=== PATIENT | female | born 1975 | race Caucasian/White ===

== ENCOUNTER 2025-03-05 15:05 | Inpatient (IN) | payer MEDICARE, OTHER ==
[~2025-03-05] VITALS: Ht 162.6 cm; Wt 52.2 kg
[2025-03-05] MEDS ORDERED: OLANZAPINE 10 MG VIAL IM ONE (16:08)
[2025-03-05] MEDS: OLANZAPINE 10 MG VIAL IM ONE (16:13)
[2025-03-05 17:06] LABS: APPEARANCE,URINE CLEAR (CLEAR); BLOOD, URINE Negative Ery/uL (NEGATIVE); LEUKOCYTE ESTERASE ,URINE Negative (NEGATIVE); UGLUCOSE Negative (NEGATIVE)
[2025-03-05 17:09] LABS: NITRITE, URINE NEGATIVE (NEGATIVE)
[2025-03-05 17:10] LABS: ADD URINE CULTURE NO; SQUAMOUS EPITHELIAL CELL,UR Rare /HPF (None Seen)
[2025-03-05 17:18] LABS: AMPHETAMINE, URINE NEGATIVE (NEGATIVE); BARBITURATE, URINE NEGATIVE (NEGATIVE); BENZODIAZEPINE, URINE NEGATIVE (NEGATIVE); CANNABINOID, URINE NEGATIVE (NEGATIVE); COCCAINE, URINE NEGATIVE (NEGATIVE); OPIATE, URINE NEGATIVE (NEGATIVE)
[2025-03-05 17:53] LABS: PLATELET COUNT (AUTO) 230 K/uL (150-450); RED BLOOD CELL COUNT(AUTO) 4.12 MIL/uL (4.0-5.2); RED CELL DISTRIBUTION WIDTH 14.7 % (11.5-15.0); WHITE BLOOD COUNT (AUTO) 5.3 K/uL (4.3-11.0)
[2025-03-05 18:00] LABS: CALCIUM, SERUM 8.8 mg/dL (8.5-10.1); CREATININE 0.7 mg/dL (0.6-1.3); SODIUM SERUM 143 mmol/L (136-145); UREA NITROGEN, BLOOD 29 mg/dL (7-18)
[2025-03-05 18:05] LABS: ALCOHOL, BLOOD < 3 mg/dL (0-10); ASPARTATE AMINOTRANSFERASE 18 U/L (15-37); TOTAL PROTEIN, SERUM 7.2 g/dL (6.4-8.2)
[2025-03-05] MEDS ORDERED: MAGN400O6 PO (19:35)
[2025-03-05] MEDS ORDERED: ACET325T53 PO (19:35)
[2025-03-05] MEDS ORDERED: SENN-261 PO (19:35)
[2025-03-05] MEDS ORDERED: CHLO100T24 PO (19:35)
[2025-03-05] MEDS ORDERED: MAGN400T30 PO (19:35)
[2025-03-05] MEDS ORDERED: LEVE500T20 PO (19:35)
[2025-03-05] MEDS ORDERED: BISA10SU11 RC (19:35)
[2025-03-05] MEDS ORDERED: LEVO100T9 PO (19:35)
[2025-03-05] MEDS ORDERED: NA P133E RC (19:35)
[2025-03-05] MEDS ORDERED: VALP250C3 PO (19:35)
[2025-03-05] MEDS ORDERED: QUET50TA PO (19:35)
[2025-03-05] MEDS ORDERED: BISACODYL SUPP (10 MG) 10 MG/SUPP.RECT SUPP.RECT RC PRN (20:30)
[2025-03-05 20:45] VITALS: BP 107/79; TEMP 97.7; O2SAT 98
[2025-03-05] MEDS ORDERED: MAG HYDROX/AL HYDROX/SIMETH 30 ML UDC PO PRN (21:00)
[2025-03-05] MEDS ORDERED: MAGNESIUM HYDROXIDE 30 ML UDC PO PRN (21:00)
[2025-03-05] MEDS ORDERED: ACETAMINOPHEN 325 MG TABLET PO PRN (21:00)
[2025-03-05] MEDS: BLOOD SUGAR DIAGNOSTIC 1 EACH STRIP IN ONE (21:12)
[2025-03-05] MEDS: LEVETIRACETAM (250 MG) 250 MG TABLET PO SCH (21:20)
[2025-03-06] MEDS: LORAZEPAM 0.5 MG TABLET PO PRN ×2 (03:31→20:52)
[2025-03-06] MEDS: LORAZEPAM INJ 2 MG/ML VIAL IM ONE ×2 (06:51→22:36)
[2025-03-06] MEDS ORDERED: HALOPERIDOL LACTATE INJ 5 MG/ML VIAL IM ONE (07:00)
[2025-03-06] MEDS: LORAZEPAM INJ 2 MG/ML VIAL IM STA (07:22)
[2025-03-06] MEDS: HALOPERIDOL LACTATE INJ 5 MG/ML VIAL IM STA (07:22)
[2025-03-06 08:00] VITALS: BP 97/65; TEMP 97.9; O2SAT 97
[2025-03-06 08:24] LABS: ASPARTATE AMINOTRANSFERASE 17.0 U/L (15-37); CALCIUM, SERUM 8.8 mg/dL (8.5-10.1); CREATININE 0.6 mg/dL (0.6-1.3); SODIUM SERUM 143.0 mmol/L (136-145); TOTAL PROTEIN, SERUM 7.7 g/dL (6.4-8.2); UREA NITROGEN, BLOOD 26.0 mg/dL (7-18)
[2025-03-06 08:42] LABS: LDL 56 mg/dL (0-99)
[2025-03-06] MEDS: SENNOSIDES 8.6 MG TABLET PO SCH (09:00)
[2025-03-06] MEDS ORDERED: MAGNESIUM OXIDE 400 MG TABLET PO SCH (09:00)
[2025-03-06] MEDS: LEVOTHYROXINE SODIUM 100 MCG TABLET PO SCH (09:00)
[2025-03-06] MEDS: LORAZEPAM 1 MG TABLET PO STA (13:40)
[2025-03-06 16:00] VITALS: BP 115/72; TEMP 98.6; O2SAT 97
[2025-03-06] MEDS: ACETAMINOPHEN 325 MG TABLET PO PRN (20:31)
[2025-03-06 20:35] VITALS: BP 112/65; TEMP 98.4; O2SAT 95
[2025-03-06] MEDS: TEMAZEPAM 15 MG CAPSULE PO PRN (21:14)
[2025-03-06] MEDS: HALOPERIDOL LACTATE INJ 5 MG/ML VIAL IM ONE (22:36)
[2025-03-07 08:00] VITALS: BP 91/70; TEMP 97.8; O2SAT 94
[2025-03-07] MEDS: LORAZEPAM INJ 2 MG/ML VIAL IM STA (11:46)
[2025-03-07] MEDS: HALOPERIDOL LACTATE INJ 5 MG/ML VIAL IM STA (11:47)
[2025-03-07 16:00] VITALS: BP 140/128; TEMP 97.5; O2SAT 96
[2025-03-07 20:19] VITALS: BP 116/72; TEMP 98.1; O2SAT 97
[2025-03-08] MEDS ORDERED: Z GUARD REMEDY 4 OZ OINT TP PRN (06:00)
[2025-03-08 08:00] VITALS: BP 161/101; TEMP 98.1; O2SAT 96
[2025-03-08 16:00] VITALS: BP 138/83; TEMP 98; O2SAT 96
[2025-03-08 18:29] LABS: PLATELET COUNT (AUTO) 268 K/uL (150-450); RED BLOOD CELL COUNT(AUTO) 4.27 MIL/uL (4.0-5.2); RED CELL DISTRIBUTION WIDTH 14.9 % (11.5-15.0); WHITE BLOOD COUNT (AUTO) 8.1 K/uL (4.3-11.0)
[2025-03-08 18:39] LABS: CALCIUM, SERUM 8.8 mg/dL (8.5-10.1); CREATININE 0.5 mg/dL (0.6-1.3); PHOSPHORUS 3.3 mg/dL (2.5-4.9); SODIUM SERUM 144.0 mmol/L (136-145); UREA NITROGEN, BLOOD 22.0 mg/dL (7-18)
[2025-03-08 20:00] VITALS: BP 141/84; TEMP 100; O2SAT 96
[2025-03-08 22:06] VITALS: TEMP 97.7
[2025-03-09 04:00] VITALS: BP 139/93; TEMP 98.2; O2SAT 97
[2025-03-09] MEDS ORDERED: LORA-259 PO (08:28)
[2025-03-09] MEDS ORDERED: MAG30ORA PO (08:28)
[2025-03-09] MEDS ORDERED: RISP1TAB97 PO (08:28)
[2025-03-09] MEDS ORDERED: ALLA266C2 TP (08:28)
[2025-03-09] MEDS ORDERED: TEMA15CA PO (08:28)
[2025-03-11] MEDS ORDERED: LEVE250T2 PO (10:31)
== END 2025-03-09 05:43 | DRG 885 ==
LOC: ER 15:10 → GPS 19:50
PROVIDERS: ADMIT Nurse Practitioner Psychiatric/Mental Health
DX: F29 Unspecified psychosis not due to a substance or known physiological condition (principal); G93.49 Other encephalopathy; E44.1 Mild protein-calorie malnutrition; E03.9 Hypothyroidism, unspecified; G40.909 Epilepsy, unspecified, not intractable, without status epilepticus; Z79.899 Other long term (current) drug therapy; Z73.6 Limitation of activities due to disability; G80.9 Cerebral palsy, unspecified; F84.0 Autistic disorder; F25.0 Schizoaffective disorder, bipolar type; E88.09 Other disorders of plasma-protein metabolism, not elsewhere classified; R79.89 Other specified abnormal findings of blood chemistry; R25.1 Tremor, unspecified; Z85.831 Personal history of malignant neoplasm of soft tissue; Z91.011 Allergy to milk products; Z79.890 Hormone replacement therapy
CPT/HCPCS: 36415; 70450-TC; 71045-TC; 80048-TC; 80053-TC; 80061-TC; 80076-TC; 81001; 82607-TC; 82962-TC; 83735-TC; 84100-TC; 85025-TC; 87081-TC; 95819-TC; 97116-TC; 97530-TC; G0480; J1200; J1630; J2060; J3490

== ENCOUNTER 2025-03-09 06:41 | Inpatient (IN) | payer MEDICARE, OTHER ==
[~2025-03-09] VITALS: Ht 162.6 cm; Wt 59.9 kg
[~2025-03-09 06:41] MED LIST: ACET325T53 PO; BISA10SU11 RC; CHLO100T24 PO; LEVE500T20 PO; LEVO100T9 PO; MAGN400O6 PO; MAGN400T30 PO; NA P133E RC; QUET50TA PO; SENN-261 PO; VALP250C3 PO
[2025-03-09 07:30] VITALS: BP 144/80; O2SAT 99
[2025-03-09] MEDS ORDERED: ALLA266C2 TP (08:28)
[2025-03-09] MEDS ORDERED: RISP1TAB97 PO (08:28)
[2025-03-09] MEDS ORDERED: LORA-259 PO (08:28)
[2025-03-09] MEDS ORDERED: MAG30ORA PO (08:28)
[2025-03-09] MEDS ORDERED: TEMA15CA PO (08:28)
[2025-03-09] MEDS ORDERED: MORPHINE SULFATE INJ 2 MG/ML DISP.SYRIN IV PRN (08:30)
[2025-03-09] MEDS ORDERED: ONDANSETRON HCL/PF 4 MG/2 ML VIAL IVP PRN (08:30)
[2025-03-09] MEDS ORDERED: LORAZEPAM INJ 2 MG/ML VIAL IV PRN (08:30)
[2025-03-09] MEDS ORDERED: hydrALAZINE HCL IV 20 MG VIAL IV PRN (08:30)
[2025-03-09] MEDS: POLYETHYLENE GLYCOL 3350 17 GM POWD.PACK PO SCH (08:41)
[2025-03-09] MEDS: DOCUSATE SODIUM LIQ 100 MG/10 ML UDC PO SCH (08:41)
[2025-03-09] MEDS: LEVETIRACETAM (250 MG) 250 MG TABLET PO SCH ×2 (08:42→21:43)
[2025-03-09] MEDS: HEPARIN SODIUM, PORCINE 5000 UNITS/1 ML VIAL SQ SCH (08:47)
[2025-03-09] MEDS ORDERED: CHLORPROMAZINE HCL 100 MG PO SCH (09:00)
[2025-03-09] MEDS ORDERED: VALPROIC ACID 750 MG PO SCH (09:00)
[2025-03-09] MEDS ORDERED: Medication Not On Formulary EA (Quetiapine Fumarate (Seroquel) 50 MG) PO SCH (09:00)
[2025-03-09 12:00] VITALS: BP 118/87; TEMP 98.9; O2SAT 99
[2025-03-09 16:00] VITALS: BP 123/99; TEMP 98.5; O2SAT 99
[2025-03-09] MEDS: ACETAMINOPHEN 325 MG TABLET PO PRN (17:00)
[2025-03-09 20:00] VITALS: BP 101/51; TEMP 98.6; O2SAT 96
[2025-03-10] VITALS: BP 129/92; TEMP 99.8; O2SAT 96
[2025-03-10 04:00] VITALS: BP 116/79; TEMP 98.4; O2SAT 97
[2025-03-10 08:00] VITALS: BP 112/73; TEMP 97.9; O2SAT 94
[2025-03-10] MEDS: LEVOTHYROXINE SODIUM 100 MCG TABLET PO SCH (08:24)
[2025-03-10 08:46] LABS: PLATELET COUNT (AUTO) 278 K/uL (150-450); RED BLOOD CELL COUNT(AUTO) 4.27 MIL/uL (4.0-5.2); RED CELL DISTRIBUTION WIDTH 15.2 % (11.5-15.0); WHITE BLOOD COUNT (AUTO) 7.8 K/uL (4.3-11.0)
[2025-03-10 09:13] LABS: ASPARTATE AMINOTRANSFERASE 26.0 U/L (15-37); CALCIUM, SERUM 9.1 mg/dL (8.5-10.1); CREATININE 0.6 mg/dL (0.6-1.3); PHOSPHORUS 3.3 mg/dL (2.5-4.9); SODIUM SERUM 148.0 mmol/L (136-145); TOTAL PROTEIN, SERUM 8.1 g/dL (6.4-8.2); UREA NITROGEN, BLOOD 24.0 mg/dL (7-18)
[2025-03-10 12:00] VITALS: BP 131/78; TEMP 98.7; O2SAT 96
[2025-03-10 16:00] VITALS: BP 133/97; TEMP 97.9; O2SAT 96
[2025-03-10 20:00] VITALS: BP 112/68; TEMP 98.2; O2SAT 95
[2025-03-11] VITALS: BP 108/81; TEMP 98.2; O2SAT 96
[2025-03-11 04:00] VITALS: BP 123/95; TEMP 98.1; O2SAT 95
[2025-03-11 08:00] VITALS: BP 144/67; TEMP 98.4; O2SAT 97
[2025-03-11] MEDS ORDERED: LEVE250T2 PO (10:31)
[2025-03-11 12:00] VITALS: BP 112/92; TEMP 98.4; O2SAT 97
[2025-03-11 16:00] VITALS: BP 110/83; TEMP 98.4; O2SAT 96
== END 2025-03-11 16:20 | DRG 101 ==
LOC: ER 06:45 → MEDSG1 06:55 → TELE1 09:00
PROVIDERS: ADMIT Internal Medicine; ATTEND Nurse Practitioner Acute Care
DX: G40.909 Epilepsy, unspecified, not intractable, without status epilepticus (principal); E44.1 Mild protein-calorie malnutrition; G93.49 Other encephalopathy; F84.0 Autistic disorder; G80.9 Cerebral palsy, unspecified; E03.9 Hypothyroidism, unspecified; E88.09 Other disorders of plasma-protein metabolism, not elsewhere classified; Z73.6 Limitation of activities due to disability; F39 Unspecified mood [affective] disorder; F25.0 Schizoaffective disorder, bipolar type; R79.89 Other specified abnormal findings of blood chemistry; Z78.1 Physical restraint status; G24.01 Drug induced subacute dyskinesia; Z79.899 Other long term (current) drug therapy; F29 Unspecified psychosis not due to a substance or known physiological condition; Z79.890 Hormone replacement therapy
CPT/HCPCS: 36415; 80053-TC; 80164-TC; 82607-TC; 83735-TC; 84100-TC; 85025-TC; G0378; J1644